=== PATIENT | male | born 1990 | race Caucasian/White ===

== ENCOUNTER 2017-09-18 08:37 | Emergency (ER) | payer BC, OTHER ==
[2017-09-18] MEDS ORDERED: Ondansetron 4 MG/2 ML SDV IVPUSH ONE (09:23)
[2017-09-18] MEDS ORDERED: Sodium Chloride 0.9% 1,000 ML IV SCH (09:30)
[2017-09-18] MEDS ORDERED: HYDROmorphone 0.5 MG/0.5 ML SYRINGE IVPUSH STA ×2 (10:41→12:01)
--- NOTE | 2017-09-18 11:44 | EDM.PDOC ---
ED HPI GENERAL MEDICAL PROBLEM - General Chief Complaint: Abdominal Pain Stated Complaint: RT SIDE PAIN Time Seen by Provider: 09/18/17 09:19 Source of Information: Reports: Patient History Limitations: Reports: No Limitations - History of Present Illness INITIAL COMMENTS - FREE TEXT/NARRATIVE: The patient states that he developed right flank pain, initially mild, around 07 :30 this morning, however, it is since become severe. The pain is making the patient feel diaphoretic, dizzy, and nauseated. The pain is sharp and crampy in character. It is constant. It does not radiate. He has not identified any modifiers. He denies associated dysuria, urinary frequency, or urinary urgency. No prior similar symptoms. The patient's PCP is Jeannette Juárez. Right Abdomen Pain Score (Numeric/FACES): 10 - Related Data Allergies Allergy/AdvReac Type Severity Reaction Status Date / Time cefaclor [From Ceclor] Allergy Hives Verified 09/18/17 09:03 Home Meds: Home Meds Acetaminophen/HYDROcodone [Laurens 325-5 MG] 1 - 2 tab PO Q6H PRN #14 tablet 09/18 [Rx] Adderall. 1 tab PO DAILY 09/18/17 [History] Ondansetron [Zofran ODT] 1 tab PO Q8H PRN #10 tab.dis 09/18/17 [Rx] Tamsulosin HCl [Flomax] 1 cap PO DAILY PRN #5 cap.er.24h 09/18/17 [Rx] Past Medical History Psychiatric History: Reports: ADHD - Past Surgical History HEENT Surgical History: Reports: Oral Surgery ([place] teeth extraction), Tonsillectomy GI Surgical History: Reports: Hernia, Inguinal (right) Social & Family History - Tobacco Use Smoking Status *Q: Current Every Day Smoker Years of Tobacco use: 10 Packs/Tins Daily: 0.5 Packs/Tins Daily Comment: Down from /4 ppd - Caffeine Use Caffeine Use: Reports: None - Alcohol Use Alcohol Use History: Yes Days Per Week of Alcohol Use Comment: 5 - Recreational Drug Use Recreational Drug Use: No - Living Situation & Occupation Living situation: Reports: Single, Other (with a roomate) Occupation: Employed (Inside/outside parts sales) ED ROS GENERAL - Review of Systems Review Of Systems: ROS reveals no pertinent complaints other than HPI. ED EXAM, RENAL/ - Physical Exam Exam: See Below Exam Limited By: No Limitations General Appearance: Alert, WD/WN, Mild Distress (Appears uncomfortable) Eye Exam: Bilateral Eye: Normal Inspection Ears: Normal External Exam, Hearing Grossly Normal Nose: Normal Inspection, No Blood Throat/Mouth: Normal Inspection, Normal Lips, Normal Voice, No Airway Compromise Head: Atraumatic, Normocephalic Neck: Normal Inspection, Full Range of Motion Respiratory/Chest: No Respiratory Distress, Lungs Clear, Normal Breath Sounds, No Accessory Muscle Use Cardiovascular: Normal Peripheral Pulses, No Edema, No Gallop, No JVD, No Murmur , No Rub, Tachycardia (regular rhythm) GI/Abdominal: Normal Bowel Sounds, Soft, Non-Tender, No Organomegaly, No Distention, No Abnormal Bruit, No Mass (Male) Exam: Deferred Rectal (Males) Exam: Deferred Back Exam: Normal Inspection, Full Range of Motion. No: CVA Tenderness (L) ( including where pain is), CVA Tenderness (R) Extremities: Normal Inspection, Normal Range of Motion, No Pedal Edema, Normal Capillary Refill Neurological: Alert, Oriented, Normal Cognition, No Motor/Sensory Deficits Psychiatric: Normal Affect Skin Exam: Warm, Dry, Intact, Normal Color, No Rash Course - Vital Signs Last Recorded V/S: Last Vital Signs Temp 36.1 C 09/18/17 09:00 Pulse 78 09/18/17 13:28 Resp 16 09/18/17 13:28 BP 132/80 09/18/17 13:28 Pulse Ox 98 09/18/17 13:28 - Orders/Labs/Meds Labs: Laboratory Tests 09/18/17 Range/Units 11:00 Urine Color Dark yellow (Yellow) Urine Appearance Clear (Clear) Urine pH 7.0 (5.0-8.0) Ur Specific [place] 1.025 (1.005-1.030) Urine Protein Trace H (Negative) Urine Glucose (UA) Negative (Negative) Urine Ketones 1+ H (Negative) Urine Occult Blood 3+ H (Negative) Urine Nitrite Negative (Negative) Urine Bilirubin Negative (Negative) Urine Urobilinogen 0.2 (0.2-1.0) Ur Leukocyte Esterase Negative (Negative) Urine RBC >100 H (0-5) /hpf Urine WBC 0-5 (0-5) /hpf Ur Epithelial Cells 0-5 (0-5) /hpf Urine Bacteria Few (FEW) /hpf Urine Mucus Moderate H (FEW) /hpf Meds: Medications Discontinued Medications Generic Name Dose Route Start Last Admin Trade Name Quique PRN Reason Stop Dose Admin Hydromorphone HCl 1 mg 09/18/17 10:41 09/18/17 10:46 Dilaudid IVPUSH 09/18/17 10:42 1 mg ONETIME STA Administration Hydromorphone HCl 1 mg 09/18/17 12:01 09/18/17 12:07 Dilaudid IVPUSH 09/18/17 12:02 1 mg ONETIME STA Administration Sodium Chloride 1,000 mls @ 150 mls/hr 09/18/17 09:30 09/18/17 09:29 Normal Saline IV 150 mls/hr ASDIRECTED ROSS Administration Ondansetron HCl 4 mg 09/18/17 09:23 09/18/17 09:29 Zofran IVPUSH 09/18/17 09:24 4 mg ONETIME ONE Administration Tamsulosin HCl 0.4 mg 09/18/17 13:01 09/18/17 13:19 Flomax PO 09/18/17 13:02 0.4 mg ONETIME ONE Administration - Re-Assessments/Exams Free Text/Narrative Re-Assessment/Exam: 09/18/17 11:44 The patient's urinalysis demonstrates considerable blood, with no sign of a UTI. I have ordered a CT of the abdomen and pelvis without contrast to evaluate for a ureterolith. 09/18/17 13:00 CT of the abdomen and pelvis without contrast is read by Dr. Garcia as: 1. 4.3 mm obstructing stone located at the UVJ on the right side causing mild proximal hydronephrosis. 2. Fatty infiltration within the liver. 3. Other normal findings as described above. 09/18/17 13:05 Test results discussed with the patient. As above, the patient has a 4.3 mm stone at the right UVJ, which is responsible for his symptoms. Given the location and size, the patient will almost certainly pass this stone on his own , therefore referral to Urology is not indicated. I will discharge the patient home with prescriptions for Laurens, Zofran, Flomax, and have him strain all urine. Departure - Departure Time of Disposition: 13:06 Disposition: Home, Self-Care 01 Condition: Fair Clinical Impression: Ureterolithiasis - Discharge Information Prescriptions: Acetaminophen/HYDROcodone [Laurens 325-5 MG] 1 - 2 tab PO Q6H PRN #14 tablet PRN Reason: Pain (Severe 7-10) Ondansetron [Zofran ODT] 1 tab PO Q8H PRN #10 tab.dis PRN Reason: Nausea/Vomiting Tamsulosin HCl [Flomax] 1 cap PO DAILY PRN #5 cap.er.24h PRN Reason: Pain Referrals: Gala Juárez, [employer] [Primary Care Provider] - Forms: ED Department Discharge Additional Instructions: You were seen in the emergency room for lower right flank pain. Workup in the ER included a urinalysis and a CT scan of your abdomen and pelvis. The CT scan confirmed that your pain is due to a 4.3 mm stone in your right ureter, just above your bladder. Based on the size and location of the stone, you will almost certainly pass this stone on your own. Take [id number] ibuprofen, 2-3 tablets (400-600 mg) every 8 hours, with food, around the clock. You may also take 1 to 2 tablets of the prescription narcotic Laurens up to every 6 hours, as needed for pain not relieved by ibuprofen. If you take Laurens, do not drive or operate heavy machinery for 10 hours afterwards. Laurens will likely cause constipation, so consider taking a stool softener. Dissolve one tablet of the anti-nausea medicine Zofran on your tongue up to every 8 hours, as needed for nausea/vomiting. Take one tablet of the anti-spasm medicine Flomax daily, starting tomorrow, , 09/19/2017, as needed for pain or spasm. Stay adequately hydrated. Strain all of your urine. If you capture the stone, take it to your PCP, Jeannette Juárez, for analysis. Any other problems, please do not hesitate to return to the ER.
--- NOTE | 2017-09-18 12:41 | CT ---
CT abdomen and pelvis Technique: Multiple axial sections were obtained from above the dome of the diaphragm inferiorly through the pubic symphysis. Intravenous and oral contrast not utilized. Study has been performed as a ureteral stone protocol. Findings: Right ureter is mildly prominent. This finding is due to an obstructing stone located at the UVJ measuring about 4.3 mm. No other abnormal calcifications are seen along the course of the ureters. Kidneys show no abnormal calcifications. Visualized lung bases are clear. Liver shows diffuse fatty infiltration. No focal abnormality is seen within the liver. Spleen appears within normal limits. Adrenal glands show no nodule. Pancreas appears within normal limits. Aorta shows no aneurysmal dilatation. No retroperitoneal adenopathy or mesenteric abnormalities are seen. No pelvic mass or adenopathy is identified. Appendix is seen which appears normal in size. Bone window settings were reviewed which appear within normal limits for the patient's age. Impression: 1. 4.3 mm obstructing stone located at the UVJ on the right side causing mild proximal hydronephrosis. 2. Fatty infiltration within the liver. 3. Other normal findings as described above. Diagnostic code #3
[2017-09-18] MEDS ORDERED: Tamsulosin 0.4 MG Cap.ER PO ONE (13:01)
== END 2017-09-18 13:25 | disposition home or self-care (01) ==
LOC: JD.ED 08:37
DX: N13.2 Hydronephrosis with renal and ureteral calculous obstruction (principal); F90.9 Attention-deficit hyperactivity disorder, unspecified type; F17.210 Nicotine dependence, cigarettes, uncomplicated; Z88.1 Allergy status to other antibiotic agents; Z79.899 Other long term (current) drug therapy
CPT/HCPCS: 74176; 81001; 96361; 96374; 96375; 96376; 99284; A9270; J1170; J2405; J7040

== ENCOUNTER 2024-03-01 11:31 | Emergency (ER) | payer BC ==
[2024-03-01 13:18] LABS: BASOPHILS ABSOLUTE AUTO 0.1 K/mm3 (0.0-0.2); BASOPHILS PERCENT AUTO 0.5 % (0.0-1.0); EOSINOPHILS ABSOLUTE AUTO 0.2 K/mm3 (0.0-0.4); EOSINOPHILS PERCENT AUTO 1.7 % (0.0-6.0); HEMATOCRIT 44.2 % (42.0-52.0); HEMOGLOBIN 16.5 gm/dl (14.0-18.0); IMMATURE GRAN ABSOLUTE AUTO 0.02 K/mm3 (0.00-0.05); IMMATURE GRAN PERCENT AUTO 0.2 % (0.0-0.4); LYMPHOCYTES ABSOLUTE AUTO 2.1 K/mm3 (1.0-4.8); LYMPHOCYTES PERCENT AUTO 22.4 % (24.0-44.0); MEAN CORPUSCULAR HEMOGLOBIN 36.3 pg (28.0-32.0); MEAN CORPUSCULAR HGB CONC 37.3 g/dl (32.0-36.0); MEAN CORPUSCULAR VOLUME 97.1 fl (83.0-99.0); MEAN PLATELET VOLUME 8.2 fl (9.4-12.4); MONOCYTES ABSOLUTE AUTO 0.9 K/mm3 (0.0-0.8); NEUTROPHILS ABSOLUTE AUTO 6.3 K/mm3 (1.8-7.7); NEUTROPHILS PERCENT AUTO 66.2 % (41.0-71.0); PLATELET COUNT,PLT 227 K/mm3 (150-400); RED BLOOD CELL COUNT 4.55 M/mm3 (4.52-5.90); WHITE BLOOD CELL COUNT,WBC 9.52 K/mm3 (3.9-11.3)
[2024-03-01 13:47] LABS: A/G RATIO 1.2 (1-2); ALANINE AMINOTRANSFERASE,ALT 211 U/L (16-63); ALBUMIN 4.4 g/dl (3.4-5.0); ALKALINE PHOSPHATASE 87 U/L (46-116); ANION GAP 13.9 (5-15); ASPARTATE AMNIOTRANSFERASE,AST 133 U/L (15-37); BILIRUBIN TOTAL 0.7 mg/dL (0.2-1.0); BLOOD UREA NITROGEN,BUN 17 mg/dL (7-18); BUN/CREATININE RATIO 13.1 (14-18); CALCIUM 10.7 mg/dL (8.5-10.1); CARBON DIOXIDE,CO2 29 mEq/L (21-32); CHLORIDE,CL 94 mEq/L (98-107); CREATININE 1.3 mg/dL (0.7-1.3); ESTIMATED GFR 74 mL/min (>60); GLUCOSE RANDOM 109 mg/dL (70-99); POTASSIUM,K 2.9 mEq/L (3.5-5.1); SODIUM,NA 134 mEq/L (136-145); TROPONIN I HIGH SENSITIVITY 5 pg/mL (<=76)
[2024-03-01] MEDS: Lidocaine 1% 10 ML MDV INJECT ONE (14:43)
== END 2024-03-01 13:45 | disposition home or self-care (01) ==
LOC: JD.ED 11:31
DX: S01.81XA Laceration without foreign body of other part of head, initial encounter (principal); Z88.1 Allergy status to other antibiotic agents; Y30.XXXA Falling, jumping or pushed from a high place, undetermined intent, initial encounter
CPT/HCPCS: 12011; 36415; 80053; 84484; 85025; 93005; 99283; J3490